=== PATIENT | female | born 1960 | race Caucasian/White ===

== ENCOUNTER 2018-03-29 12:47 | Outpatient (CLI) | payer OTHER ==
--- NOTE | 2018-03-29 15:56 | Ultrasound Report ---
Reason: DIZZINESS AND GIDDINESS,PERSONAL HISTORY OF TRAUMA Procedure Date: 03/29/2018 Accession Number: [id number] / [id number] Procedure: US - Carotid Doppler Complete CPT Code: FULL RESULT: EXAM: BILATERAL CAROTID AND VERTEBRAL ARTERY DUPLEX DOPPLER ULTRASOUND: EXAM DATE: 03/29/2018 02:33 PM CLINICAL HISTORY: Dizziness and giddiness, personal history of trauma. COMPARISON: None. TECHNIQUE: Grayscale imaging, color Doppler, and duplex spectral Doppler were used to evaluate the carotid and vertebral arteries bilaterally. Static images were obtained. FINDINGS: No significant plaque is identified in the right or left common or internal carotid arteries. Normal antegrade flow is present in bilateral vertebral arteries. VELOCITIES (cm/sec): Right CCA mid: PSV 72.4 cm/sec CCA dist: PSV 68.9 cm/sec ICA prox: PSV 48.4 cm/sec, EDV 26.7 cm/sec ICA mid: PSV 57.8 cm/sec, EDV 36.2 cm/sec ICA dist: PSV 68.6 cm/sec, EDV 39.5 cm/sec ECA: PSV 59.0 cm/sec Vert: PSV 36.3 cm/sec ICA/CCA: 0.94 Left CCA mid: PSV 62.1 cm/sec CCA dist: PSV 76.5 cm/sec ICA prox: PSV 42.5 cm/sec, EDV 25.7 cm/sec ICA mid: PSV 49.6 cm/sec, EDV 29.5 cm/sec ICA dist: PSV 61.6 cm/sec, EDV 41.2 cm/sec ECA: PSV 81.6 cm/sec Vert: PSV 47.4 cm/sec ICA/CCA: 0.81 ICA diameter stenosis: Right: <50% by velocity and <70% by NASCET criteria. Left: <50% by velocity and <70% by NASCET criteria. IMPRESSION: 1. No significant bilateral carotid artery plaquing. 2. In the right carotid artery there are no elevated carotid artery velocities to suggest hemodynamically significant stenosis. 3. In the left carotid artery there are no elevated carotid artery velocities to suggest hemodynamically significant stenosis. 4. Normal antegrade flow is present in bilateral vertebral arteries. General Recommendations: Stenosis =50% ICA - Follow-up ultrasound 6-12 months Stenosis <50% ICA - High Risk Patient with plaque - Follow-up ultrasound 1-2 years Normal Study but High Risk Patient - Follow-up ultrasound 3-5 years Management recommendations and diagnostic criteria are based on current IAC endorsed standards in Carotid Artery Stenosis: Grayscale and Doppler Ultrasound Diagnosis. Validated velocity measurements with angiographic measurements and velocity criteria are extrapolated from diameter data as defined by the Society of Radiologists in Ultrasound Consensus Conference Radiology 2003; 229;340-346. RADIA
== END 2018-03-29 12:48 | disposition home or self-care (01) ==
LOC: DI 12:47
PROVIDERS: ATTEND Family Medicine
DX: R42 Dizziness and giddiness (principal); Z87.820 Personal history of traumatic brain injury; Z87.891 Personal history of nicotine dependence; I10 Essential (primary) hypertension
CPT/HCPCS: 93880

== ENCOUNTER 2018-06-06 08:36 | Emergency (ER) | payer OTHER ==
[2018-06-06 08:46] VITALS: BP 146/84
--- NOTE | 2018-06-06 09:09 | ED Physician Documentation ---
PD HPI BACK PAIN - Stated complaint Stated Complaint: BACK PX - Chief complaint Chief Complaint: Back Pain - History obtained from History obtained from: Patient - History of Present Illness Timing - onset: Chronic (worse for the past few days) Timing - details: Gradual onset Pain level max: 8 Pain level now: 8 Location: Lower, Right, Left Quality: Pain, Spasm, Similar to prior episodes Associated symptoms: No: Fever, Weakness, Numbness, Incontinent of urine, Unable to urinate, Hematuria, Incontinent of stool Improves with: Rest Worsened by: Movement Contributing factors: No: Lifting, Twisting, Trauma, Anticoagulated, Cancer, IVDA, Out of meds Similar symptoms before: Diagnosis (States has 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) Recently seen: Not recently seen Review of Systems Constitutional: denies: Fever, Chills Respiratory: denies: Cough GI: denies: Nausea, Vomiting, Diarrhea : denies: Unable to Void, Incontinent Skin: denies: Rash Musculoskeletal: denies: Neck pain Neurologic: denies: Focal weakness, Numbness PD PAST MEDICAL HISTORY - Past Medical History Cardiovascular: Hypertension GI: GERD HEENT: Other - Past Surgical History Past Surgical History: No - Present Medications Home Medications: Ambulatory Orders Medication Instructions Recorded Confirmed Calcium Carbonate/Vitamin D3 1 tab PO DAILY 11/12/15 06/06/18 [Calcium 500-Vit D3 600 Tablet] Esomeprazole Magnesium [Nexium] 20 mg PO DAILY 11/12/15 06/06/18 Naproxen [Naprosyn] 500 mg PO BID 11/12/15 06/06/18 amLODIPine [Norvasc] 5 mg PO DAILY 11/12/15 06/06/18 Cyclobenzaprine [Flexeril] 10 mg PO TID PRN #20 tablet 06/06/18 Hydrocodone/Acetaminophen 1 - 2 each PO Q6H PRN #14 tablet 06/06/18 [Hydrocodon-Acetaminophen 5-325] Sertraline [Zoloft] 50 mg PO DAILY 06/06/18 06/06/18 - Allergies Allergies/Adverse Reactions: Allergies Allergy/AdvReac Type Severity Reaction Status Date / Time No Known Drug Allergies Allergy Verified 06/06/18 08:46 - Social History Does the pt smoke?: Yes Smoking Status: Current every day smoker Does the pt drink ETOH?: Yes Does the pt have substance abuse?: No - Immunizations Immunizations are current?: Yes PD ED PE NORMAL - Vitals Vital signs reviewed: Yes - General General: Alert and oriented X 3, No acute distress, Well developed/nourished - HEENT HEENT: PERRL, Moist mucous membranes - Neck Neck: Supple, no meningeal sign, No bony TTP - Cardiac Cardiac: RRR - Respiratory Respiratory: No respiratory distress, Clear bilaterally - Abdomen Abdomen: Soft, Non tender, Non distended - Back Back: No spinal TTP (No midline tenderness to palpation. Bilateral paraspinal spasm in the lumbar.) - Derm Derm: Warm and dry - Extremities Extremities: Other (Normal bilateral lower extremity patellar and ankle jerk reflexes. Normal great toe extension bilaterally. no saddle anesthesia) - Neuro Neuro: Alert and oriented X 3, No motor deficit, No sensory deficit - Psych Psych: Normal mood, Normal affect Results - Vitals Vitals: Vital Signs - 24 hr 06/06/18 08:42 Temperature 36.6 C Heart Rate 99 Respiratory 14 Rate Blood Pressure 146/84 H O2 Saturation 98 Oxygen O2 Source Room air PD MEDICAL DECISION MAKING - ED course Complexity details: considered differential (No cauda equina, no spinal epidural abscess, no fracture, no aortic dissection or evidence of aneursym rupture), d/w patient ED course: Patient with acute on chronic back pain. Will prescribe a small amount of pain medication for home. She is well-appearing, nontoxic. Afebrile. No evidence of cauda equina or epidural abscess. Patient counseled regarding signs and symptoms for which I believe and urgent re-evaluation would be necessary. Patient with good understanding of and agreement to plan and is comfortable going home at this time This document was made in part using voice recognition software. While efforts are made to proofread this document, sound alike and grammatical errors may occur. Departure - Departure Disposition: 01 Home, Self Care Clinical Impression: Lumbago Qualifiers: Chronicity: unspecified Back pain laterality: bilateral Sciatica presence: without sciatica Qualified Code(s): M54.5 - Low back pain Condition: Good Instructions: ED Neck Back Pain General Follow-Up: ROBERT OGDEN DO [Primary Care Provider] - Within 1 week Prescriptions: Cyclobenzaprine [Flexeril] 10 mg PO TID PRN #20 tablet PRN Reason: Spasms Hydrocodone/Acetaminophen [Hydrocodon-Acetaminophen 5-325] 1 - 2 each PO Q6H PRN #14 tablet PRN Reason: pain Comments: Use the medications as prescribed. Your back should improve over the next few days. Return if you worsen. Follow-up with your doctor for further care. Do not drink alcohol or drive while on narcotic pain medicine. Note that many narcotic pain relievers also contain tylenol/acetaminophen. Please ensure that your total dose of acetaminophen from all sources does not exceed 3 grams (3000mg) per day. You may constipated on this medication, take a stool softener such as "Colace" twice a day while you are on it. Also recommend a rssb-uni-xixlkeo laxative such as senna or MiraLAX any day that you do not have a bowel movement. If you received narcotic pain medication in the emergency department, do not drive or operate machinery for the next 24 hours.
== END 2018-06-06 09:26 | disposition home or self-care (01) ==
LOC: ED 08:36
DX: M54.5 Low back pain (principal); G89.29 Other chronic pain; I10 Essential (primary) hypertension; F17.200 Nicotine dependence, unspecified, uncomplicated
CPT/HCPCS: 99283

== ENCOUNTER 2018-06-08 16:13 | Emergency (ER) | payer OTHER ==
--- NOTE | 2018-06-08 17:14 | ED Physician Documentation ---
PD HPI BACK PAIN - Stated complaint Stated Complaint: BACK PX - Chief complaint Chief Complaint: Back Pain - History obtained from History obtained from: Patient - History of Present Illness Timing - onset: How many weeks ago (1) Timing - duration: Weeks (1) Timing - details: Gradual onset, Still present, Waxing and waning Location: Lower, Right Quality: Pain, Spasm Associated symptoms: No: Fever, Weakness, Numbness, Incontinent of urine Improves with: No: Rest, Meds Worsened by: Movement, Lifting Contributing factors: Lifting Recently seen: Emergency Dept (2 days ago and not getting improvement with the meds Rx. Not taking any NSAIDs.) Review of Systems Constitutional: denies: Fever, Chills Nose: denies: Rhinorrhea / runny nose, Congestion Throat: denies: Sore throat Respiratory: denies: Cough GI: denies: Abdominal Pain, Nausea, Vomiting, Diarrhea : denies: Dysuria, Incontinent Skin: denies: Rash, Lesions PD PAST MEDICAL HISTORY - Past Medical History Cardiovascular: Hypertension GI: GERD HEENT: Other Musculoskeletal: None - Past Surgical History Past Surgical History: No - Present Medications Home Medications: Ambulatory Orders Medication Instructions Recorded Confirmed Calcium Carbonate/Vitamin D3 1 tab PO DAILY 11/12/15 06/06/18 [Calcium 500-Vit D3 600 Tablet] Esomeprazole Magnesium [Nexium] 20 mg PO DAILY 11/12/15 06/06/18 RX: Naproxen [Naprosyn] 500 mg PO BID 11/12/15 06/06/18 RX: amLODIPine [Norvasc] 5 mg PO DAILY 11/12/15 06/06/18 Cyclobenzaprine [Flexeril] 10 mg PO TID PRN #20 tablet 06/06/18 Hydrocodone/Acetaminophen 1 - 2 each PO Q6H PRN #14 tablet 06/06/18 [Hydrocodon-Acetaminophen 5-325] Sertraline [Zoloft] 50 mg PO DAILY 06/06/18 06/06/18 Oxycodone HCl/Acetaminophen 1 each PO Q6H PRN #20 tablet 06/08/18 [Percocet 7.5-325 mg Tablet] - Allergies Allergies/Adverse Reactions: Allergies Allergy/AdvReac Type Severity Reaction Status Date / Time No Known Drug Allergies Allergy Verified 06/08/18 16:31 - Social History Does the pt smoke?: Yes Smoking Status: Current every day smoker Does the pt drink ETOH?: Yes Does the pt have substance abuse?: No - Immunizations Immunizations are current?: Yes PD ED PE NORMAL - Vitals Vital signs reviewed: Yes - General General: Alert and oriented X 3, Well developed/nourished - Cardiac Cardiac: RRR, No murmur - Respiratory Respiratory: Clear bilaterally - Abdomen Abdomen: Soft, Non tender - Female Female : Deferred - Rectal Rectal: Deferred - Back Back: No CVA TTP, No spinal TTP (but is tender right paralumbar muscle with focal trigger point. ) - Derm Derm: Normal color, Warm and dry, No rash - Neuro Neuro: Alert and oriented X 3, No motor deficit, No sensory deficit, Normal speech, Other (normal knee reflexes. ) Results - Vitals Vitals: Vital Signs - 24 hr 06/08/18 06/08/18 16:16 18:23 Temperature 36.6 C 37.3 C Heart Rate 82 88 Respiratory 16 16 Rate Blood Pressure 142/98 H 115/77 O2 Saturation 98 96 Oxygen O2 Source Room air Procedures - General procedure General procedure: Local injection with Kenalog and Marcaine into point of focal tenderness right low paralumbar muscle. PD MEDICAL DECISION MAKING - ED course Complexity details: reviewed old records, considered differential (low back pain without red flags. Prior Rx meds not working. Can add NSAIDs consistently and also change meds. Add trigger point injection. ), d/w patient Departure - Departure Disposition: 01 Home, Self Care Clinical Impression: Acute low back pain Qualifiers: Back pain laterality: right Sciatica presence: without sciatica Qualified Code(s): M54.5 - Low back pain Condition: Stable Record reviewed to determine appropriate education?: Yes Instructions: ED Low Back Pain Injury Follow-Up: ROBERT OGDEN DO [Primary Care Provider] - Prescriptions: Oxycodone HCl/Acetaminophen [Percocet 7.5-325 mg Tablet] 1 each PO Q6H PRN #20 tablet PRN Reason: Pain Comments: Heat and gentle stretching for the low back. Physical modalities such as massage and chiropractic are okay to try and can be helpful. Use some Aleve or ibuprofen 2 tablets 3 times a day for the next 5-6 days. Continue the Flexeril as needed for spasms and stiffness. Change to Percocet pain medicine and see if it works better. Recheck if not improving over the next several days. Will also see if the injection in the trigger spot helps as well over the next few days. Discharge Date/Time: 06/08/18 18:33
[2018-06-08] MEDS ORDERED: HYDROmorphone 2 MG/ML VIAL IM STA (17:37)
[2018-06-08] MEDS ORDERED: KETOROLAC 30 MG/ML VIAL IM STA (17:37)
[2018-06-08] MEDS ORDERED: TRIAMCINOLONE 40 MG/ML VIAL IM STA (17:37)
[2018-06-08 18:24] VITALS: BP 115/77
== END 2018-06-08 18:33 | disposition home or self-care (01) ==
LOC: ED 16:13
DX: M54.5 Low back pain (principal); I10 Essential (primary) hypertension; F17.200 Nicotine dependence, unspecified, uncomplicated
CPT/HCPCS: 96372; 99283; J1170

== ENCOUNTER 2018-08-01 09:29 | Outpatient (CLI) | payer OTHER ==
--- NOTE | 2018-08-01 18:50 | MRI Report ---
Reason: RADICULOPATHY,LUMBAR REGION,CERVICAL REGION Procedure Date: 08/01/2018 Accession Number: [id number] / [id number] Procedure: MRI - Cervical Spine W/O CPT Code: FULL RESULT: EXAM: MRI CERVICAL SPINE WITHOUT CONTRAST EXAM DATE: 08/01/2018 10:25 AM. CLINICAL HISTORY: Neck and back pain. Radiculopathy. COMPARISONS: Cervical spine MRI 02/28/2014. TECHNIQUE: Multiplanar, multisequence T1-weighted and fluid-sensitive sequences of the cervical spine without contrast. Other: None. FINDINGS: There is fusion across the facet joint on the right at C2-C3. No suspicious marrow replacement is present in the cervical vertebral bodies. Grade 1 retrolisthesis of C5 relative to C6 is noted. Anterior disk protrusion and osteophyte formation are again seen most evident at C5-C6. Along the inferior lateral right cerebellum there is a 2.0 x 0.9 cm T2 hyperintense focus which is not included on the sagittal images or on the comparison study. No abnormal T2 signal is seen in the cervical spinal cord. C2-C3: No posterior disk protrusion is seen. Facet hypertrophy is seen on the left. C3-C4: No posterior disk protrusion is seen. Uncovertebral joint spurring is seen on the left and there is left facet hypertrophy. This results in severe left foraminal stenosis. The degree of left foraminal stenosis has increased C4-C5: A minimal posterior disk protrusion is seen. Disk/osteophyte complex formation is seen involving the posterior lateral margin of the disk bilaterally. There is bilateral uncovertebral joint spurring. There is mild right and moderate left foraminal stenosis. Bilateral facet hypertrophy is present. This is stable. C5-C6: A minimal posterior disk protrusion is seen. Disk/osteophyte complex formation is seen involving the posterior lateral and foraminal margin of the disk bilaterally. There is flattening of the right ventral cervical spinal cord. Central canal measures 8 mm. Bilateral uncovertebral joint spurring is seen. Mild right and moderate left foraminal stenosis are present. This is stable. C6-C7: A minimal posterior disk protrusion is seen. Disk/osteophyte complex formation is seen involving the posterior lateral margin of the disk. There is bilateral uncovertebral joint spurring. Central canal measures 11 mm. Moderate to severe bilateral foraminal stenosis is present. This has increased on the right. C7-T1: A minimal left-sided disk protrusion is seen. T1-T2: No posterior disk protrusion. T2-T3: There is a foraminal protrusion on the right which on the sagittal views appears to result in foraminal stenosis. This is better visualized on today's study, but appears to be relatively stable. IMPRESSION: 1. Degenerative disk disease, facet hypertrophy, osteophyte formation, and uncovertebral joint spurring are present at multiple levels, discussed above. 2. There has been an increase in the degree of right foraminal stenosis at C6-C7 and an increase in the degree of left foraminal stenosis at C3-C4. 3. Again seen is mild central canal stenosis at C5-C6 with flattening of the right ventral cervical spinal cord. 4. Multilevel foraminal stenosis is otherwise stable. 5. Stable spondylolisthesis at C5-C6. 6. A T2 hyperintense focus is seen along the lateral aspect of the inferior right cerebellum. This could reflect an arachnoid cyst. Dedicated MRI of the brain would be of value to better characterize this finding which is not included on the comparison study. RADIA
--- NOTE | 2018-08-02 09:36 | MRI Report ---
Reason: RADICULOPATHY,LUMBAR REGION,CERVICAL REGION Procedure Date: 08/01/2018 Accession Number: [id number] / [id number] Procedure: MRI - Lumbar Spine W/O CPT Code: FULL RESULT: EXAM: MRI LUMBAR SPINE WITHOUT CONTRAST EXAM DATE: 08/01/2018 10:59 AM. CLINICAL HISTORY: Low back pain. Radiculopathy. COMPARISON: Lumbar spine MRI from 02/28/2014. TECHNIQUE: Multiplanar, multisequence T1-weighted and fluid-sensitive sequences of the lumbar spine from T12 to S1 without contrast. Other: None. FINDINGS: Spinal Canal: The conus terminates at mid L1. The conus medullaris and cauda equina are unremarkable. Alignment: Mild dextroconvex scoliosis centered at the L1-L2 level and mild levoconvex scoliosis centered at the L3-L4 level. Right lateral listhesis of L2 on L3 by approximately 4 mm. Grade 1 retrolisthesis at L2-L3 by approximately 3 mm. Grade 1 retrolisthesis at L1-L2 by approximately 2 mm. Bone Marrow: Five vja-xvu-hoctfxy lumbar vertebral bodies are assumed. Mild chronic compression fracture of L1 vertebral body and mild to moderate chronic compression fracture of L2 vertebral body. No acute fractures or bone lesions. Schmorl's nodes at the L1, L2, and L3 superior endplates. Disk Levels/Facets: L5-S1: Degenerative endplate changes. Moderate to severe disk space narrowing. Small posterior central disk protrusion. Small diffuse disk bulge/osteophyte complex. Mild to moderate facet arthropathy. Mild canal stenosis. Mild to moderate foraminal stenoses. No change. L4-L5: Moderate right and mild to moderate left facet arthropathy. Mild foraminal stenoses. No change. L3-L4: Severe right-sided disk space narrowing. Small right foraminal and extraforaminal disk bulge/osteophyte complex. Mild right facet arthropathy. Mild to moderate right foraminal stenosis. No change. L2-L3: Right-sided degenerative endplate changes. Moderate to severe right-sided and nomx-ft-lbvulomh left-sided disk space narrowing. Small to moderate-sized disk bulge/osteophyte complex. Mild left and mild to moderate right facet arthropathy. Mild canal stenosis. Moderate to severe right and mild left foraminal stenoses. No change. L1-L2: Moderate left-sided and mild right-sided disk space narrowing. Small left foraminal and extraforaminal disk protrusion/osteophyte complex. Small right foraminal disk protrusion. Mild to moderate left and mild right facet arthropathy. Mild canal stenosis. Moderate to severe left and mild to moderate right foraminal stenoses. No change. T12-L1: Mild to moderate left facet arthropathy. Mild to moderate left foraminal stenosis. No change. Musculature: Mild to moderate fatty atrophy of the posterior paraspinal muscles. Other: The partially visualized retroperitoneum is unremarkable. IMPRESSION: 1. Mild dextroconvex scoliosis centered at the L1-L2 level and mild levoconvex scoliosis centered at the L3-L4 level. Right lateral listhesis of L2 on L3 by approximately 4 mm. Grade 1 retrolisthesis at L2-L3 and L1-L2. 2. Multilevel degenerative disk changes, osteophytosis, and facet arthropathy. There are varying degrees of stenoses. Please see above for level by level details. No change since the previous study. 3. Small to moderate-sized disk bulge/osteophyte complex at L2-L3. Mild canal stenosis. Moderate to severe right and mild left foraminal stenoses. 4. Small left foraminal and extraforaminal disk protrusion/osteophyte complex and small right foraminal disk protrusion at L1-L2. Mild canal stenosis. Moderate to severe left and mild to moderate right foraminal stenoses. 5. Small posterior central disk protrusion and a small diffuse disk bulge/osteophyte complex at L5-S1. Mild canal stenosis. Mild to moderate foraminal stenoses. 6. Small right foraminal and extraforaminal disk bulge/osteophyte complex at L3-L4. Mild to moderate right foraminal stenosis. Comment: The following findings are so common in adults without low back pain that while we report their presence, they must be interpreted with caution and in the context of the clinical situation. (Reference Christopherk et al, Spine 2001) Prevalence of findings in patients without low back pain: Disk degeneration (any evidence): 92% Disk desiccation/T2 signal loss: 83% Disk height loss: 56% Disk bulge: 64% Disk protrusion: 32% Annular tear/high intensity zone: 38% RADIA
== END 2018-08-01 09:30 | disposition home or self-care (01) ==
LOC: DI 09:29
PROVIDERS: ATTEND Family Medicine
DX: M50.321 Other cervical disc degeneration at C4-C5 level (principal); M48.02 Spinal stenosis, cervical region; M47.9 Spondylosis, unspecified; M50.221 Other cervical disc displacement at C4-C5 level; M43.12 Spondylolisthesis, cervical region; G93.9 Disorder of brain, unspecified; M51.36 Other intervertebral disc degeneration, lumbar region; M48.061 Spinal stenosis, lumbar region without neurogenic claudication; M51.26 Other intervertebral disc displacement, lumbar region; M41.9 Scoliosis, unspecified; M51.27 Other intervertebral disc displacement, lumbosacral region; M51.37 Other intervertebral disc degeneration, lumbosacral region; M48.07 Spinal stenosis, lumbosacral region
CPT/HCPCS: 72141; 72148

== ENCOUNTER 2018-08-29 09:23 | Outpatient (CLI) | payer OTHER ==
--- NOTE | 2018-08-29 13:07 | MRI Report ---
Reason: HEADACHE, SPINAL STENOSIS Procedure Date: 08/29/2018 Accession Number: [id number] / [id number] Procedure: MRI - Brain W/O CPT Code: FULL RESULT: EXAM: MRI BRAIN WITHOUT CONTRAST EXAM DATE: 08/29/2018 10:30 AM. CLINICAL HISTORY: Headache, spinal stenosis. COMPARISON: None. TECHNIQUE: Multiplanar, multisequence T1-weighted and fluid-sensitive MR sequences of the brain were performed. Sequences optimized for routine evaluation. Other: None. IV Contrast: None. FINDINGS: Brain Volume: Normal for age. Parenchyma/Dura: No restricted diffusion to suggest acute or recent ischemic infarct. Peripheral wedge-shaped fluid signal defect of the right posterior cerebellum up to 1.5 cm, likely old ischemic infarct. Chronic encephalomalacia and gliosis along the inferior surfaces of the frontal lobes medially are present, right more extensive than left, consistent with remote brain injury, possibly from trauma. There are numerous scattered punctate foci of abnormal cerebral white matter T2 hyperintensity, mainly in the frontal lobes. These are nonspecific. The usual gamut of white matter conditions may be considered. No midline shift or abnormal subdural fluid collection. Ventricles/Cisterns: No hydrocephalus. Orbits: Symmetric and unremarkable. Sella Turcica: No evidence for a space occupying mass. IAC: Symmetric and unremarkable. Vasculature: Normal signal flow void is seen in the major arterial structures at the skull base. Sinuses: Prominent multifocal paranasal sinus mucosal thickening. Large left maxillary sinus air-fluid level. Bones: No focal pathologic appearing marrow signal changes. Other: None. IMPRESSION: 1. No evidence for acute intracranial abnormality. 2. Inferior bifrontal peripheral encephalomalacia and gliosis consistent with a remote brain injury. 3. 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 4. Multifocal nonspecific cerebral white matter T2 hyperintense signal changes, the usual gamut of white matter conditions may be considered including postinflammatory and postischemic gliosis as well as previous trauma. 5. Sinusitis. RADIA
== END 2018-08-29 09:24 | disposition home or self-care (01) ==
LOC: DI 09:23
PROVIDERS: ATTEND Family Medicine
DX: G93.89 Other specified disorders of brain (principal); J32.9 Chronic sinusitis, unspecified
CPT/HCPCS: 70551

== ENCOUNTER 2020-12-09 11:13 | Outpatient (CLI) | payer OTHER ==
--- NOTE | 2020-12-10 13:39 | Mammography Report ---
BILATERAL DIGITAL SCREENING MAMMOGRAM 3D/2D: 12/09/2020 CLINICAL: Routine screening. Comparison is made to exams dated: 05/13/2015 mammogram, 09/04/2012 mammogram, and 01/26/2011 mammogra m - [facility]. The tissue of both breasts is predominantly fatty. No significant masses, calcifications, or other findings are seen in either breast. There has been no significant interval change. IMPRESSION: NEGATIVE There is no mammographic evidence of malignancy. A 1 year screening mammogram is recommended. This exam was interpreted at Station ID: [id number]. NOTE: For mammograms, a report in lay terms will be sent to the patient. Approximately 15% of breast malignancies will not be visualized mammographically. In the management of a palpable breast mass, a negative mammogram must not discourage biopsy of a clinically suspicious lesion. Electronically Signed By: Sharad Avalos M.D. aty/penrad:12/09/2020 15:37:58 ACR BI-RADS Category 1: Negative [id number] PARENCHYMAL PATTERN: (F) - The breast(s) demonstrate(s) diffuse fatty replacement. BI-RADS CATEGORY: (1) - 1 RECOMMENDATION: (ANNUAL) - Recommend routine annual screening mammography. [id number] 1 year screening LATERALITY: (B)
== END 2020-12-09 11:14 | disposition home or self-care (01) ==
LOC: DI.N 11:13
DX: Z12.31 Encounter for screening mammogram for malignant neoplasm of breast (principal)

== ENCOUNTER 2022-05-02 09:57 | Outpatient (CLI) | payer OTHER ==
--- NOTE | 2022-05-03 10:09 | MRI Report ---
PROCEDURE: LUMBAR SPINE WO INDICATIONS: CERVICAL AND LUMBAR STENOSIS TECHNIQUE: Noncontrast sagittal T1 spin echo and T2 fast echo, sagittal STIR, axial T1 and T2 fast spin echo thr ough the lumbar spine. In cases with scoliosis, additional coronal T2 fast spin echo may be performe d. COMPARISON: None. FINDINGS: S-shaped scoliosis in the lumbar spine. Right lateral listhesis of L2 on L3 measuring 5 mm. No suspic ious lytic or blastic osseous lesion. Discogenic endplate marrow edema at multiple levels most notabl y at L5-S1. Normal position and appearance of the conus. Prevertebral and paraspinous soft tissues de monstrate no acute finding. T12-L1: No spinal canal stenosis. Moderate left and mild right neural foraminal narrowing. L1-L2: No spinal canal stenosis. Posterior discussed by complex in the left subarticular zone mild ly displaces the descending left L2 nerve roots. Moderate left and mild right neural foraminal narrow ing. L2-L3: Disc bulge and protrusion flattening the ventral thecal sac. Displacement of the bilateral av cending L3 nerve roots, right greater than left. Overall moderate to severe right subarticular zone s tenosis. Moderate right and mild left neural foraminal narrowing due to foraminal components of the d isc bulge and neural foraminal height loss related to scoliosis. L3-L4: Diffuse disc bulge without mass effect upon the traversing L4 nerve roots. Mild right neural foraminal narrowing due to foraminal components of the disc bulge and facet hypertrophy. L4-L5: No spinal canal stenosis. Mild bilateral neural foraminal narrowing due to facet hypertrophy and foraminal components of a diffuse disc bulge. L5-S1: Posterior disc osteophyte complex with central and left paracentral protrusion. Mild displac ement of the descending left S1 nerve roots in the left subarticular zone. Moderate to severe bilater al neural foraminal narrowing with abutment and possible flattening of the exiting L5 nerve roots. IMPRESSION: Moderate scoliosis with associated multilevel multifactorial degenerative changes. Reviewed by: Hayden Talley MD on 05/03/2022 10:07 AM [facility] Approved by: Hayden Talley MD on 05/03/2022 10:07 AM PST Station ID: [id number]
--- NOTE | 2022-05-03 10:12 | MRI Report ---
PROCEDURE: CERVICAL SPINE WO INDICATIONS: CERVICAL AND LUMBAR STENOSIS TECHNIQUE: Noncontrast sagittal T1 spin echo and T2 fast spin echo, sagittal STIR, foraminal oblique sagittal T2 fast spin echo, and axial gradient echo or T2 fast spin echo through the cervical spine. COMPARISON: None. FINDINGS: Straightening of usual cervical lordosis. Approximately 3 mm anterolisthesis of C4 on C5. Vertebral b ronni heights maintained. Discogenic marrow edema at the opposing C5-C6, C6-C7 and C7-T1 endplates. No suspicious focal marrow signal abnormality. Normal morphology and signal intensity of the cervical co rd. The syrinx. Regional soft tissues are normal. C2-C3: No spinal canal or neural foraminal stenosis. C3-C4: Moderate left and mild right neural foraminal narrowing due to facet and uncovertebral hyper trophy. No spinal canal stenosis. C4-C5: Mild spinal canal stenosis due to posterior disc osteophyte complex flattening the ventral co rd. Moderate to severe bilateral neural foraminal narrowing with flattening/deformation of the exitin g C5 nerve roots. C5-C6: Mild to moderate spinal canal stenosis due to posterior disc osteophyte complex flattening an d indenting the ventral cord along with buckling of ligamentum flavum effacing the dorsal CSF space. Facet and uncovertebral hypertrophy combine to produce moderate bilateral neural foraminal narrowing due to facet and uncovertebral hypertrophy. C6-C7: Mild spinal canal stenosis due to posterior disc-osteophyte complex flattening and indenting the ventral cord. Facet and uncovertebral hypertrophy combine to produce severe left and moderate rig ht neural foraminal narrowing. C7-T1: Mild spinal canal stenosis due to posterior disc osteophyte complex flattening the ventral th ecal sac. Mild bilateral neural foraminal narrowing due to facet and uncovertebral hypertrophy. IMPRESSION: Multilevel multifactorial degenerative changes, most pronounced at C4-C5, C5-C6, and C6-C7. Reviewed by: Hayden Talley MD on 05/03/2022 10:11 AM PST Approved by: Hayden Talley MD on 05/03/2022 10:11 AM PST Station ID: [id number]
== END 2022-05-02 09:58 | disposition home or self-care (01) ==
LOC: DI 09:57
PROVIDERS: ATTEND Family Medicine
DX: M48.02 Spinal stenosis, cervical region (principal); M48.061 Spinal stenosis, lumbar region without neurogenic claudication; M47.816 Spondylosis without myelopathy or radiculopathy, lumbar region; M47.812 Spondylosis without myelopathy or radiculopathy, cervical region

== ENCOUNTER 2022-05-24 10:44 | Outpatient (CLI) | payer OTHER ==
--- NOTE | 2022-05-26 08:35 | DEXA Report ---
PROCEDURE: Dexa Spine and/or Hip INDICATIONS: Postmenopausal status, height loss TECHNIQUE: Dual energy x-ray absorptiometry (DXA) was performed on a [employer] System. Regions measur ed are the AP Spine, femoral neck, and if needed forearm. COMPARISON: None. FINDINGS: Lumbar Spine: Bone Mineral Density 1.308 g/cm/cm,T score 0.9, normal Left Femoral Neck: Bone Mineral Density 0.854 g/cm/cm, T score -1.3, osteopenia Left Hip: Bone Mineral Density 0.948 g/cm/cm,T score -0.5, normal IMPRESSION: Osteopenia on the basis of low left femoral neck bone mineral density. Patients with diagnosis of osteoporosis or osteopenia should have regular bone mineral density assess ment. For those eligible for Medicare, routine testing is allowed once every 2 years. Testing frequ ency can be increased for patients who have rapidly progressing disease or for those who are receivin g medical therapy to restore bone mass. Reviewed by: Hayden Talley MD on 05/26/2022 8:33 AM PST Approved by: Hayden Talley MD on 05/26/2022 8:33 AM PST Station ID: [id number]
== END 2022-05-24 10:45 | disposition home or self-care (01) ==
LOC: DI 10:44
PROVIDERS: ATTEND Family Medicine
DX: R29.890 Loss of height (principal); Z78.0 Asymptomatic menopausal state; M85.88 Other specified disorders of bone density and structure, other site

== ENCOUNTER 2022-12-15 15:23 | Outpatient (CLI) | payer OTHER ==
--- NOTE | 2022-12-19 16:57 | Ultrasound Report ---
PROCEDURE: Ankle Brachial Index INDICATIONS: CRAMP, HTN TECHNIQUE: Ankle-brachial indices were obtained bilaterally and recorded. COMPARISONS: None. FINDINGS: Right ankle brachial index (GIAN): 1.2 Left ankle brachial index (GIAN): 1.1 Healing potential: Ankle pressures >55 mm Hg in non-diabetics and >80 mm Hg in diabetics are likely to achieve primary h ealing of ischemic foot ulcers. Toe pressures >30 mm Hg are likely to achieve primary healing of ischemic foot ulcers, toe or transme tatarsal amputations. IMPRESSION: No evidence of arterial insufficiency to the bilateral lower extremities. Reviewed by: Jimenez Lombardi MD on 12/19/2022 4:56 PM PDT Approved by: Jimenez Lombardi MD on 12/19/2022 4:56 PM PDT Station ID: [id number]
== END 2022-12-15 15:24 | disposition home or self-care (01) ==
LOC: DI 15:23
PROVIDERS: ATTEND Family Medicine
DX: R25.2 Cramp and spasm (principal); I10 Essential (primary) hypertension; E78.5 Hyperlipidemia, unspecified; Z87.891 Personal history of nicotine dependence
CPT/HCPCS: 93922